=== PATIENT | female | born 1950 | race Caucasian/White ===

== ENCOUNTER 2017-02-24 11:38 | Day surgery (SDC) | payer MEDICARE ==
[~2017-02-24] VITALS: Ht 175.3 cm; Wt 60.3 kg
[~2017-02-24 11:38] MED LIST: DENO60DI SQ; DONE10TA5 PO; DONE5TAB30 PO; LEVO75CA2 PO; LEVO75TA4 PO; PREC VG; Sodium Chloride LOK Flush 10 mL Syringe IV PRN; fentaNYL-PF 50 mCg/mL 2 mL Inj IVPUSH PRN
[2017-02-24 12:30] VITALS: BP 114/58; PULSE 69; RESP 17; O2SAT 100
[2017-02-24] MEDS: 0.9% Sodium Chloride 1,000 ML IV SCH ×2 (12:58→13:25)
[2017-02-24 13:33] VITALS: BP 98/47; PULSE 63; RESP 14; O2SAT 100
[2017-02-24 13:43] VITALS: BP 95/59; PULSE 66; RESP 14; O2SAT 99
--- NOTE | 2017-02-24 15:20 | ENDO ---
[address] [address] ENDOSCOPY PROCEDURE PATIENT: JOHN HEARD : 1950 MR#: [id number] ADMIT: 02/24/2017 JOB ID: [id number] DATE: 02/24/2017 PRIMARY PROVIDER: Zaynab Sexton M.D. PROCEDURE: Colonoscopy. INDICATIONS: A 66-year-old female who has reported a change in bowel habit with a thinner caliber stool 1-2 times per day. EQUIPMENT: PCF H 180 AL. SEDATION: 1. 5 mg Versed. 2. 100 mcg fentanyl. COMPLICATIONS: None identified. BOWEL PREPARATION: Fair, adequate examination. PROCEDURAL INFORMATION: After the risks and benefits were explained, written and verbal informed consent was obtained. The patient was brought into the endoscopy suite and placed into the left lateral decubitus position. Sedation was achieved as above. A digital rectal examination accomplished. Mild internal hemorrhoids noted. The scope was introduced into the rectum and advanced to the cecum as identified by the appendiceal orifice and ileocecal valve. The scope was slowly withdrawn to carefully examine the mucosa for any defects or lesions. Multiple direct views were made through the dentate line for exclusion of pathology. The colon was decompressed. The scope removed from the patient who tolerated the procedure well. FINDINGS: No significant polyps, mass lesions, or inflammatory features identified throughout. There was some mild diverticulosis in the sigmoid region. The patient had an exceptionally tortuous challenging navigation really from sigmoid all the way through into the right colon and cecum. I did not appreciate any strictures or mass lesions throughout. ENDOSCOPIC DIAGNOSES: 1. Hemorrhoids. 2. Twisty colon. 3. Diverticulosis. RECOMMENDATIONS: 1. Repeat colonoscopy in 10 years' time, sooner should symptoms warrant an earlier examination. 2. The change in caliber of stool was probably a consequence of excessive tortuosity through the left colon. I have encouraged the patient to maintain adequate daily fiber supplementation to facilitate soft, regular evacuations. 3. Followup in GI clinic p.r.n. any time.
== END 2017-02-24 23:59 | disposition home or self-care (01) ==
LOC: END 11:38
PROVIDERS: ATTEND Internal Medicine Gastroenterology
DX: R19.4 Change in bowel habit (principal); K57.30 Diverticulosis of large intestine without perforation or abscess without bleeding; K64.8 Other hemorrhoids
CPT/HCPCS: 45378; 99153; G0500; J2250; J3010; J7030